=== PATIENT | female | born 1955 | race African-American/Black ===

== ENCOUNTER 2016-09-19 10:11 | Observation (INO) | payer OTHER ==
[~2016-09-19] VITALS: Ht 162.6 cm; Wt 60.4 kg
[~2016-09-19 10:11] MED LIST: ALENDRONATE5 MG PO; ALLERGY RELF10 M3 PO; AMITRIPTYLIN25 MG OR; ATENOLOL25 MG PO; FLEXERIL PO; HYDROCHLOR12.5 MG/CA PO; IBUPROFEN800 MG OR; LEVOTHROID88 MCG PO; LEVOTHYROXIN75 MCG PO; LIDODERM5 % EX; LISINOP/HCTZ1 TAB PO; LISINOPRIL/HYDR1 TA1 PO; LISINOPRIL10 MG PO; LORTAB 5 OR; LORTAB 5/3255 MG PO; MOTRIN800 MG/TAB PO; NAPROSYN500 MG OR; NEURONTIN300 MG OR; NORCO1 TA1 PO; OMEPRAZOLE20 MG PO; PAMELOR25 MG OR; PRILOSEC20 MG PO; PRILOSEC20 MG/CAP PO; PROAIR HFA IN; TENORMIN25 M1 PO; ULTRAM50 M1 PO; ZOFRAN ODT4 MG PO
[2016-09-19 11:59] LABS: URINE BILIRUBIN - DIPSTICK NEGATIVE (NEGATIVE); URINE BLOOD DIPSTICK TRACE-INTACT (NEGATIVE); URINE CLARITY CLEAR; URINE COLOR YELLOW; URINE GLUCOSE - DIPSTICK NEGATIVE (NEGATIVE); URINE KETONE NEGATIVE (NEGATIVE); URINE LEUK ESTERASE SMALL (Negative); URINE NITRITE - DIPSTICK NEGATIVE (Negative); URINE PROTEIN - DIPSTICK NEGATIVE (NEG-TRACE); URINE UROBILINOGEN - DIPSTICK 0.2 E.U./dL (0.2)
[2016-09-19 12:13] LABS: URINE BACTERIA MODERATE hpf; URINE RBC 0-2 RBC/hpf (0-5); URINE SQUAMOUS EPITHELIAL CELL FEW EPI/hpf (0-FEW)
[2016-09-19 12:16] LABS: ALBUMIN 4.8 g/dL (3.2-5.0); ALKALINE PHOSPHATASE 124 u/l (38-126); ANION GAP 17 (6-22 (CALC)); BILIRUBIN, TOTAL 0.8 mg/dL (0.0-1.4); BUN 15 mg/dL (7-17); BUN/CREATININE RATIO 19 (12-20 (CALC)); CALCIUM 9.9 mg/dL (8.4-10.2); CARBON DIOXIDE 23 mmol/l (22-30); CHLORIDE 105 mmol/l (95-108); CREATININE 0.7 mg/dL (0.5-1.0); GFR > 60 ML/MIN (>=60 (CALC)); GFR FOR AFR.AMER. > 60 ML/MIN (>=60 (CALC)); GLUCOSE 76 mg/dL (65-105); LIPASE 37 u/l (23-300); POTASSIUM 3.9 mmol/l (3.5-5.1); SGOT/AST 41 u/l (14-36); SGPT/ALT 34 u/l (9-52); SODIUM 141 mmol/l (137-146)
[2016-09-19 12:19] LABS: HEMATOCRIT 44.9 % (37.0-47.0); HEMOGLOBIN 14.6 g/dl (12.0-16.0); IMMATURE GRANULOCYTES 0.4 % (0.0-1.0); MEAN CELL VOLUME 89.8 fL CALC (80.0-100.0); MEAN CORPUSCULAR HGB 29.2 pG CALC (26.0-32.0); MEAN CORPUSCULAR HGB CONC 32.5 g/L CALC (32.0-36.0); NEUT# 4.3 thou/uL (2.00-7.15)
[2016-09-19 16:10] VITALS: BP 113/52
[2016-09-19 19:10] VITALS: BP 120/62
[2016-09-19 19:15] VITALS: BP 120/62
[2016-09-19 23:50] VITALS: BP 110/59
[2016-09-20 05:03] VITALS: BP 93/62
[2016-09-20 05:37] LABS: HEMATOCRIT 39.3 % (37.0-47.0); HEMOGLOBIN 12.6 g/dl (12.0-16.0); IMMATURE GRANULOCYTES 0.2 % (0.0-1.0); MEAN CELL VOLUME 92.5 fL CALC (80.0-100.0); MEAN CORPUSCULAR HGB 29.6 pG CALC (26.0-32.0); MEAN CORPUSCULAR HGB CONC 32.1 g/L CALC (32.0-36.0); NEUT# 1.87 thou/uL (2.00-7.15); RED BLOOD COUNT 4.25 mill/uL (4.20-5.60); RED CELL DISTRI WIDTH 16.4 % (11.5-15.5)
[2016-09-20 05:47] LABS: ANION GAP 14 (6-22 (CALC)); BUN 11 mg/dL (7-17); BUN/CREATININE RATIO 16 (12-20 (CALC)); CALCIUM 8.7 mg/dL (8.4-10.2); CARBON DIOXIDE 22 mmol/l (22-30); CHLORIDE 107 mmol/l (95-108); CREATININE 0.7 mg/dL (0.5-1.0); GFR > 60 ML/MIN (>=60 (CALC)); GFR FOR AFR.AMER. > 60 ML/MIN (>=60 (CALC)); GLUCOSE 62 mg/dL (65-105); POTASSIUM 3.9 mmol/l (3.5-5.1); SODIUM 139 mmol/l (137-146)
[2016-09-20 07:45] VITALS: BP 111/64
[2016-09-20 09:46] VITALS: BP 111/64
[2016-09-20] MEDS ORDERED: CIPROFLOXACN500 MG PO (11:04)
[2016-09-20] MEDS ORDERED: METRONIDAZOL500 MG PO (11:04)
[2016-09-20] MEDS ORDERED: FLORASTOR250 M1 PO (11:04)
[2016-09-20] MEDS ORDERED: TRAMADOL HCL50 MG PO (11:10)
== END 2016-09-20 13:04 | disposition home or self-care (01) | DRG 392 ==
LOC: ENPENDDIS → ED 10:11 → ED-I 10:42 → ED 10:42 → ED-I 14:08 → ED 15:17 → MS2 15:18
PROVIDERS: Emergency Medicine; ADMIT Internal Medicine; ATTEND Internal Medicine
DX: K57.32 Diverticulitis of large intestine without perforation or abscess without bleeding (principal); I10 Essential (primary) hypertension; E03.9 Hypothyroidism, unspecified; K21.9 Gastro-esophageal reflux disease without esophagitis; M81.0 Age-related osteoporosis without current pathological fracture; F17.210 Nicotine dependence, cigarettes, uncomplicated; J45.909 Unspecified asthma, uncomplicated; D25.9 Leiomyoma of uterus, unspecified
CPT/HCPCS: G0378

== ENCOUNTER 2016-10-30 06:57 | Day surgery (SDC) | payer OTHER ==
[~2016-10-30] VITALS: Ht 162.6 cm; Wt 63.5 kg
[~2016-10-30 06:57] MED LIST changes: +ALLERGY NA50 MCG/ACT; +AMLODIPINE5 MG PO; +CALTRATE PO; +CIPROFLOXACN500 MG PO; +FLORASTOR250 M1 PO; +LEVOTHYROXIN75 MC1 PO; +METRONIDAZOL500 MG PO; +MOBIC7.5 M1 PO; +MOTRIN800 MG PO; +TRAMADOL HCL50 MG PO; +[UNRECOGNIZED DRUG - OTHER] PO
[2016-10-30 13:51] VITALS: BP 90/60
== END 2016-10-30 11:23 | disposition home or self-care (01) | DRG 386 ==
LOC: ENDO 06:57
PROVIDERS: ATTEND Surgery
PROC: 0DJD8ZZ Inspection of Lower Intestinal Tract, Via Natural or Artificial Opening Endoscopic (ICD-10-PCS; principal; 2016-10-30)
DX: K50.10 Crohn's disease of large intestine without complications (principal); Q43.8 Other specified congenital malformations of intestine; I10 Essential (primary) hypertension; K57.30 Diverticulosis of large intestine without perforation or abscess without bleeding
CPT/HCPCS: G0104

== ENCOUNTER 2016-12-04 07:11 | Day surgery (SDC) | payer OTHER ==
[~2016-12-04] VITALS: Ht 162.6 cm; Wt 62.6 kg
[2016-12-04 10:02] VITALS: BP 90/62
== END 2016-12-04 10:20 | disposition home or self-care (01) | DRG 392 ==
LOC: ENDO 07:11 → ORM 08:25 → ENDO 10:20 → ORM 12:00
PROVIDERS: ATTEND Surgery
PROC: 0DJD8ZZ Inspection of Lower Intestinal Tract, Via Natural or Artificial Opening Endoscopic (ICD-10-PCS; principal; 2016-12-04)
DX: K57.30 Diverticulosis of large intestine without perforation or abscess without bleeding (principal); Q43.9 Congenital malformation of intestine, unspecified; I10 Essential (primary) hypertension

== ENCOUNTER 2017-05-19 10:45 | Observation (INO) | payer OTHER ==
[~2017-05-19] VITALS: Ht 162.6 cm; Wt 69.8 kg
--- NOTE | 2017-05-19 10:54 | NUR ---
Pt to room # 9 via w/c for bedside triage
--- NOTE | 2017-05-19 11:10 | NUR ---
IV SITE INITIATED AND LABS COLLECTED. PT REPORTS LEFT SIDED CHEST PAIN X 2 DAYS WITH SOME ANXIETY. PT PREFERS NOT TO DISCUSS WHAT IS BOTHERING HER BUT IS TEARFUL. LS CLEAR. VSS, MONITOR SHOWING NSR. PT AWARE OF PLAN OF CARE AND WAIT TIME. CALL VILLASEÑOR WITHIN REACH.
[2017-05-19] MEDS ORDERED: MELOXICAM7.5 MG PO (11:19)
[2017-05-19] MEDS ORDERED: K-DUR/KLOR-CON20 MEQ PO (11:20)
[2017-05-19 11:21] LABS: IMMATURE GRANULOCYTES 0.4 % (0.0-1.0); MEAN CELL VOLUME 91.8 fL CALC (80.0-100.0); MEAN CORPUSCULAR HGB 31.3 pG CALC (26.0-32.0); NEUT# 5.58 thou/uL (2.00-7.15); RED BLOOD COUNT 5.15 mill/uL (4.20-5.60); RED CELL DISTRI WIDTH 13.7 % (11.5-15.5)
[2017-05-19] MEDS ORDERED: ATENOLOL25 MG PO (11:21)
[2017-05-19] MEDS ORDERED: ASPIRIN81 MG PO (11:23)
[2017-05-19] MEDS ORDERED: CYCLOBENZAPR5 MG PO (11:24)
[2017-05-19 11:25] LABS: HEMATOCRIT 47.3 % (37.0-47.0); HEMOGLOBIN 16.1 g/dl (12.0-16.0)
[2017-05-19 11:40] LABS: ANION GAP 18 (6-22 (CALC)); BUN 11 mg/dL (7-17); BUN/CREATININE RATIO 11 (12-20 (CALC)); CARBON DIOXIDE 23 mmol/l (22-30); CHLORIDE 104 mmol/l (95-108); GFR 57 ML/MIN (>=60 (CALC)); GFR FOR AFR.AMER. > 60 ML/MIN (>=60 (CALC)); SODIUM 141 mmol/l (137-146)
--- NOTE | 2017-05-19 11:40 | NUR ---
PT REPORTS ABD DISCOMFORT FROM THE ASPIRIN TO AN EMPTY STOMACH. ERLIN PROVIDED AND NOTIFIED OF PT STAUS, AWAITING ORDERS. WILL CONTINUE TO MONITOR.
--- NOTE | 2017-05-19 12:15 | NUR ---
PT REPORTS RELIEF FROM THE GI COCTAIL AND IS RESTING COMFORTABLY IN STRETCHER. PT AWARE OF PLAN OF CARE AND WAIT TIME. CALL VILLASEÑOR WITHIN REACH. WILL CONITNUE TO MONIOTR.
--- NOTE | 2017-05-19 12:20 | NUR ---
SBAR PRINTED TO FLOOR
--- NOTE | 2017-05-19 13:00 | NUR ---
PT UPTO BED SIDE COMMODE AND DENIES ANY PAIN AT THIS TIME. CALL VILLASEÑOR WITHIN REACH, WILL CONITNUE TO MONITOR.
--- NOTE | 2017-05-19 13:24 | NUR ---
MS NURSE WILL CALL BACK FOR REPORT.
--- NOTE | 2017-05-19 14:00 | NUR ---
PT RESTING COMFORTABLY IN STRETCHER AND DENIES ANY NEEDS AT THIS TIME. PT AWARE OF PENDING ADMISSION, WILL CONTINUE TO MONITOR.
--- NOTE | 2017-05-19 14:15 | NUR ---
REPORT CALLED TO KEN HAMMOND.
--- NOTE | 2017-05-19 14:50 | NUR ---
DURING TRANSPORT PT REPORTS DIZZINESS UPON STANDING AFTER TAKING BP MEDICATIONS. DISCUSSED BLOOD PRESSURE AND MEDICATION REGIMENT WITH IVONNE MEANS NP IN [facility] ABOUT PT COMPLAINTS AND MINIMAL HYPOTENSION DURING ED STAY.
--- NOTE | 2017-05-19 14:50 | NUR ---
Admission Note Report Given to: SBAR PRINTED TO FLOOR Transported by: Wheelchair X Stretcher Transported with: X Nurse Transporter X Patent IV O2 X Director Maternal Child
--- NOTE | 2017-05-19 14:55 | NUR ---
PT CAME FROM ER VIA STRETCHER BY KEN SANTOS. PROTOTYPE MACHINIST IN ROOM TO ASSIST PT TO BED.
[2017-05-19 15:00] VITALS: BP 88/60
--- NOTE | 2017-05-19 16:15 | NUR ---
ASSESSMENT DONE AND TELE IN PLACE. RESPS EVEN AND UNLABORED. PT DENIES PAIN AT THIS TIME. # 22 RAC THAT APPEARS HEALTHY. CALL LIGHT IN REACH.
--- NOTE | 2017-05-19 19:10 | NUR ---
REPORT RECEIVED FROM KEN HAMMOND;PT RESTING IN BED WATCHING TV;INTRODUCED SELF TO PT AND POC DISCUSSED;PT COMPLAINS OF HEADACHE PAIN RATING 7/10 ON THE PAIN SCALE;DISCUSSED TYLENOL ORDER WITH PT AND THE WAIT TIME FOR CARDINAL TO PROFILE ORDER;PT VERBALIZES UNDERSTANDING;PT ENCOURAGED TO REPORT CONCERNS;CALL LIGHT WITHIN REACH;WILL CONTINUE TO MONITOR
[2017-05-19 19:20] VITALS: BP 97/68
--- NOTE | 2017-05-19 20:25 | NUR ---
ASSESSMENT COMPLETED;PT A&O X3;RESPIRATIONS EVEN AND UNLABORED ON RA,CLEAR LUNG SOUNDS;ABDOMEN SOFT ON PALPATION,BOWEL SOUNDS ACTIVE IN ALL 4 QUADS;STRONG PEDAL PULSES;SKIN INTACT;TELE MONITOR IN PLACE;#22G TO RAC INFUSING NS @ 100ML/HR,SITE APPEARS HEALTHY;TYLENOL 500MG PO ADMINISTERED FOR A HEADACHE RATING 7/10 ON THE PAIN SCALE;ORANGE JUICE PROVIDED PER REQUEST;PT DENIES ANY OTHER NEEDS AND IS ENCOURAGED TO CALL FOR ASSISTANCE IF NEEDED;WILL CONTINUE TO MONITOR
[2017-05-20] VITALS (9 sets, daily range): BP systolic 81–120; BP diastolic 53–77
--- NOTE | 2017-05-20 00:30 | NUR ---
PT REQUEST IV SITE BE CHANGED;#22G TO RAC REMOVED WITH CATHETER INTACT;NEW #22G STARTED TO LEFT HAND BY WRITTER;SITE FLUSHED AND PATENT;PT DENIES ANY OTHER NEEDS;TELE MONITOR IN PLACE;WILL CONTINUE TO MONITOR
--- NOTE | 2017-05-20 05:30 | NUR ---
PT APPEARS TO BE SLEEPING IN SUPINE POSITION;WOKE PT TO ADMINISTER SCHEDULED MEDICATION;PT VOICES NO COMPLAINTS OF CHEST PAIN;IV SITE PATENT INFUSING NS @ 100ML/HR;TELE MONITOR IN PLACE;ORTHOSTATICS OBTAINED AT THIS TIME, SUPINE 96/63 SITTING 120/77 STANDING 112/75;PT ENCOURAGED TO CALL FOR ASSISTANCE IF NEEDED;WILL CONTINUE TO MONITOR
[2017-05-20 06:38] LABS: HEMATOCRIT 42.2 % (37.0-47.0); IMMATURE GRANULOCYTES 0.4 % (0.0-1.0); MEAN CELL VOLUME 92.7 fL CALC (80.0-100.0); MEAN CORPUSCULAR HGB CONC 33.4 g/L CALC (32.0-36.0); NEUT# 3.95 thou/uL (2.00-7.15); RED BLOOD COUNT 4.55 mill/uL (4.20-5.60); RED CELL DISTRI WIDTH 13.8 % (11.5-15.5)
[2017-05-20 06:47] LABS: HEMOGLOBIN 14.1 g/dl (12.0-16.0)
[2017-05-20 06:53] LABS: CHOLESTEROL HDL RATIO 2.7 (<4.4 (CALC))
[2017-05-20 06:58] LABS: ANION GAP 14 (6-22 (CALC)); BUN 15 mg/dL (7-17); BUN/CREATININE RATIO 16 (12-20 (CALC)); CARBON DIOXIDE 21 mmol/l (22-30); CHLORIDE 110 mmol/l (95-108); CREATININE 0.9 mg/dL (0.5-1.0); GFR > 60 ML/MIN (>=60 (CALC)); GFR FOR AFR.AMER. > 60 ML/MIN (>=60 (CALC)); MAGNESIUM 1.8 mg/dL (1.6-2.3); SODIUM 140 mmol/l (137-146)
[2017-05-20 06:59] LABS: POTASSIUM 4.9 mmol/l (3.5-5.1)
--- NOTE | 2017-05-20 07:45 | NUR ---
PT ALERT AND ORIENTED, RESTING IN BED COMPAINING OF STOMACH DISCOMFORT, STATING THAT "THAT BABY ASPIRIN THEY GIVING ME TEARS MY STOMACH UP" PT STATES SHE TAKES SOMETHING AT HOME FOR ACID REFLUX, EDUCATED THAT SHE WAS GIVEN THIS MEDICATION LAST PM AND THAT SHE IS SCHEDULED TO GET IT AGAIN THIS AM, WILL NOTIFY MD OF COMPLAINTS OF INDIGESTION AND ABD DISCOMFORT ON AM ROUNDS, ALSO STATES THAT SHE DON'T EAT ALL THIS GREASY FOOD AT HOME IN REFERENCE TO MEALS FROM DIETARY, DIETARY NOTIFIED TO GO OVER DIET CHOICES FOR MEALS, AM ASSESSMENT COMPLETED SEE INTERVENTIONS, COMFORT MEASURES PROVIDED, WILL CONTINUE TO MONITOR.
--- NOTE | 2017-05-20 09:15 | NUR ---
DIETARY AT BEDSIDE FOR DIET CHOICES AND OVERHEARD PT ASKING ABOUT GETTING FRIED CHICKEN. DIET CHOICES COMPLETED, PT MEDICATED EARLIER FOR INDIGESTON AND ABD DISCOMFORT, CALL VILLASEÑOR WITHIN REACH.
--- NOTE | 2017-05-20 10:23 | NUR ---
IVONNE ARAGON AT BEDSIDE TO SEE PT
--- NOTE | 2017-05-20 11:00 | NUR ---
ORTHOSTATIC BLOOD PRESSURES TAKEN ON PT AT THIS TIME. PT LAYING SUPINE BLOOD PRESSURE 91/54; PULSE 67. PT SITTING ON SIDE OF THE BED BLOOD PRESSURE 109/69; PULSE 71. PT STANDING ON SIDE OF THE BED BLOOD PRESSURE 98/65; PULSE 74.
--- NOTE | 2017-05-20 11:30 | NUR ---
AND IVONNE ARAGON INTO SEE PT, PLAN OF CAR DISCUSSED INCLUDING D/C TODAY ALL QUESTIONS ANSWERED.
--- NOTE | 2017-05-20 13:00 | NUR ---
ALL HOME MEDICATIONS RETURNED TO PT FROM PHARMACY
--- NOTE | 2017-05-20 13:11 | NUR ---
Discharge instructions given. Patient verbalizes understanding of same. Discharged in stable condition via Wheelchair to Home with family. All belongings sent with pt.
== END 2017-05-20 13:13 | disposition home or self-care (01) | DRG 313 ==
LOC: ED 10:45 → ED-I 12:10 → ED 12:20 → MS2 12:21
PROVIDERS: Family Medicine; Nurse Practitioner Family; ADMIT Internal Medicine; ATTEND Internal Medicine
DX: R07.9 Chest pain, unspecified (principal); I95.9 Hypotension, unspecified; I10 Essential (primary) hypertension; K21.9 Gastro-esophageal reflux disease without esophagitis; E03.9 Hypothyroidism, unspecified; M81.0 Age-related osteoporosis without current pathological fracture; F17.200 Nicotine dependence, unspecified, uncomplicated
CPT/HCPCS: G0378

== ENCOUNTER 2017-07-11 11:57 | Emergency (ER) | payer OTHER ==
[~2017-07-11] VITALS: Ht 162.6 cm; Wt 73.0 kg
[~2017-07-11 11:57] MED LIST changes: +ASPIRIN81 MG PO; +CYCLOBENZAPR5 MG PO; +K-DUR/KLOR-CON20 MEQ PO; +MELOXICAM7.5 MG PO
[2017-07-11] MEDS ORDERED: TRAMADOL HYDROC50 MG PO (14:33)
[2017-07-11 14:41] VITALS: BP 111/65
== END 2017-07-11 14:46 | disposition home or self-care (01) | DRG 552 ==
LOC: ED 11:57
DX: M54.5 Low back pain (principal); E07.9 Disorder of thyroid, unspecified; I10 Essential (primary) hypertension; J45.909 Unspecified asthma, uncomplicated; F17.210 Nicotine dependence, cigarettes, uncomplicated

== ENCOUNTER 2017-08-25 11:30 | Emergency (ER) | payer OTHER ==
[~2017-08-25] VITALS: Ht 162.6 cm; Wt 63.6 kg
[~2017-08-25 11:30] MED LIST changes: +TRAMADOL HYDROC50 MG PO
[2017-08-25 12:19] LABS: HEMATOCRIT 44.6 % (37.0-47.0); HEMOGLOBIN 14.7 g/dl (12.0-16.0); IMMATURE GRANULOCYTES 0.3 % (0.0-1.0); MEAN CELL VOLUME 92.1 fL CALC (80.0-100.0); MEAN CORPUSCULAR HGB 30.4 pG CALC (26.0-32.0); RED BLOOD COUNT 4.84 mill/uL (4.20-5.60); RED CELL DISTRI WIDTH 14.1 % (11.5-15.5)
[2017-08-25 12:47] LABS: PROTHROMBIN TIME 10.8 SECONDS (9.0-12.5)
[2017-08-25 17:16] VITALS: BP 120/78
== END 2017-08-25 17:17 | disposition short-term general hospital (02) | DRG 151 ==
LOC: ED 11:30 → ED-I 14:43 → ED 17:17
PROVIDERS: Family Medicine
PROC: 2Y41X5Z Packing of Nasal Region using Packing Material (ICD-10-PCS; principal; 2017-08-25)
DX: R04.0 Epistaxis (principal); F17.200 Nicotine dependence, unspecified, uncomplicated; I10 Essential (primary) hypertension

== ENCOUNTER 2017-09-12 15:43 | Inpatient (IN) | payer OTHER ==
[~2017-09-12] VITALS: Ht 162.6 cm; Wt 68.6 kg
[2017-09-12 16:28] LABS: URINE BILIRUBIN - DIPSTICK NEGATIVE (NEGATIVE); URINE BLOOD DIPSTICK NEGATIVE (NEGATIVE); URINE COLOR YELLOW; URINE GLUCOSE - DIPSTICK NEGATIVE (NEGATIVE); URINE KETONE NEGATIVE (NEGATIVE); URINE LEUK ESTERASE NEGATIVE (NEGATIVE); URINE NITRITE - DIPSTICK NEGATIVE (Negative); URINE PROTEIN - DIPSTICK NEGATIVE (NEG-TRACE); URINE SPECIFIC GRAVITY <=1.005; URINE UROBILINOGEN - DIPSTICK 0.2 E.U./dL (0.2)
[2017-09-12 16:29] LABS: URINE CLARITY CLEAR
[2017-09-12 16:36] LABS: HEMATOCRIT 40.4 % (37.0-47.0); HEMOGLOBIN 13.4 g/dl (12.0-16.0); IMMATURE GRANULOCYTES 0.7 % (0.0-1.0); MEAN CELL VOLUME 91.8 fL CALC (80.0-100.0); MEAN CORPUSCULAR HGB 30.5 pG CALC (26.0-32.0); MEAN CORPUSCULAR HGB CONC 33.2 g/L CALC (32.0-36.0); NEUT# 13.21 thou/uL (2.00-7.15); RED BLOOD COUNT 4.4 mill/uL (4.20-5.60); RED CELL DISTRI WIDTH 14.4 % (11.5-15.5)
[2017-09-12 16:43] LABS: ALBUMIN 4.3 g/dL (3.2-5.0); ALKALINE PHOSPHATASE 151 u/l (38-126); ANION GAP 17 (6-22 (CALC)); BILIRUBIN, TOTAL 0.4 mg/dL (0.0-1.4); BUN 18 mg/dL (7-17); BUN/CREATININE RATIO 26 (12-20 (CALC)); CARBON DIOXIDE 21 mmol/l (22-30); CHLORIDE 105 mmol/l (95-108); CREATININE 0.7 mg/dL (0.5-1.0); GFR > 60 ML/MIN (>=60 (CALC)); GFR FOR AFR.AMER. > 60 ML/MIN (>=60 (CALC)); POTASSIUM 4.1 mmol/l (3.5-5.1); SGOT/AST 35 u/l (14-36); SGPT/ALT 36 u/l (9-52); SODIUM 138 mmol/l (137-146); TOTAL PROTEIN 8.2 g/dL (6.3-8.2)
[2017-09-12 16:44] LABS: INTERNATIONAL NORMALIZED RATIO 0.9 RATIO (0.7-1.3); PROTHROMBIN TIME 10.5 SECONDS (9.0-12.5)
[2017-09-12 16:54] LABS: MYOGLOBIN 31 ng/mL (0 - 62)
[2017-09-12 20:05] VITALS: BP 92/62
[2017-09-13 00:40] VITALS: BP 92/51
[2017-09-13 04:00] VITALS: BP 103/65
[2017-09-13 08:00] VITALS: BP 98/61
[2017-09-13 11:28] VITALS: BP 103/75
[2017-09-13 14:58] VITALS: BP 103/75
[2017-09-13 19:39] VITALS: BP 127/79
[2017-09-14 00:49] VITALS: BP 129/80
[2017-09-14 03:18] VITALS: BP 145/84
[2017-09-14 05:30] LABS: HEMATOCRIT 40.9 % (37.0-47.0); HEMOGLOBIN 13.3 g/dl (12.0-16.0); MEAN CELL VOLUME 93.6 fL CALC (80.0-100.0); MEAN CORPUSCULAR HGB 30.4 pG CALC (26.0-32.0); MEAN CORPUSCULAR HGB CONC 32.5 g/L CALC (32.0-36.0); RED BLOOD COUNT 4.37 mill/uL (4.20-5.60); RED CELL DISTRI WIDTH 14.1 % (11.5-15.5)
[2017-09-14 05:42] LABS: ANION GAP 15 (6-22 (CALC)); BUN 12 mg/dL (7-17); BUN/CREATININE RATIO 19 (12-20 (CALC)); CARBON DIOXIDE 21 mmol/l (22-30); CHLORIDE 106 mmol/l (95-108); CREATININE 0.6 mg/dL (0.5-1.0); GFR > 60 ML/MIN (>=60 (CALC)); GFR FOR AFR.AMER. > 60 ML/MIN (>=60 (CALC)); POTASSIUM 4.7 mmol/l (3.5-5.1); SODIUM 137 mmol/l (137-146)
[2017-09-14 08:19] VITALS: BP 137/81
[2017-09-14 10:49] VITALS: BP 118/76
[2017-09-14] MEDS ORDERED: PREDNISONE10 MG PO (13:29)
[2017-09-14] MEDS ORDERED: LEVAQUIN750 MG PO (13:29)
[2017-09-14 14:58] VITALS: BP 116/71
== END 2017-09-14 15:55 | disposition home health service (06) | DRG 193 ==
LOC: ED 15:43 → ED-I 19:00 → ED 19:10 → MS2 19:11
PROVIDERS: Emergency Medicine; ADMIT Internal Medicine; ATTEND Internal Medicine
DX: J18.9 Pneumonia, unspecified organism (principal); J96.21 Acute and chronic respiratory failure with hypoxia; J44.0 Chronic obstructive pulmonary disease with (acute) lower respiratory infection; I10 Essential (primary) hypertension; E03.9 Hypothyroidism, unspecified; K21.9 Gastro-esophageal reflux disease without esophagitis; M81.0 Age-related osteoporosis without current pathological fracture; F17.210 Nicotine dependence, cigarettes, uncomplicated; I95.9 Hypotension, unspecified
CPT/HCPCS: J1650